=== PATIENT | male | born 1995 | race African-American/Black ===

== ENCOUNTER 2017-01-10 11:34 | Emergency (ER) | payer MEDICAID, OTHER ==
[2017-01-10 11:39] VITALS: BP 154/82
[2017-01-10] MEDS ORDERED: LORazepam TAB(*) 1 MG PO ONE ×2 (12:53→16:53)
[2017-01-10 13:22] LABS: Hematocrit 44 % (42-52); Hemoglobin 14.7 g/dl (14.0-18.0); Mean Corpuscular HGB Conc 33 g/dl (31-36); Mean Corpuscular Hemoglobin 28 pg (27-31); Mean Corpuscular Volume 86 fL (80-94); Mean Platelet Volume 9 um3 (7.4-10.4); Red Blood Count 5.17 10^6/ul (4.0-5.4); Red Cell Distribution Width 13 % (10.5-15); White Blood Count 14.5 10^3/ul (3.5-10.8)
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
[2017-01-10 13:33] LABS: ALT 18 U/L (7-52); AST 34 U/L (13-39); Albumin 4.9 g/dL (3.2-5.2); Alkaline Phosphatase 64 U/L (34-104); Anion Gap 8 mmol/L (2-11); BUN/Creatinine Ratio 7.1 (8-20); Blood Urea Nitrogen 8 mg/dL (6-24); CO2 Carbon Dioxide 29 mmol/L (22-32); Calcium 9.8 mg/dL (8.6-10.3); Chloride 101 mmol/L (101-111); EGFR African American 105.4 (>60); Globulin 2.7 g/dL (2-4); Glucose 128 mg/dL (70-100); Potassium 3.5 mmol/L (3.5-5.0); Sodium 138 mmol/L (133-145); Total Protein 7.6 g/dL (6.4-8.9); Urine Bilirubin Negative (Negative); Urine Glucose Negative (Negative); Urine Nitrite Negative (Negative)
[2017-01-10 13:35] LABS: Acetaminophen < 15 mcg/mL; Alcohol < 10 mg/dL (<10); Salicylate < 2.50 mg/dL (<30)
[2017-01-10 13:37] LABS: Benzodiazepine Urine Screen None Detected (None Detect)
[2017-01-10 13:43] LABS: TSH (Thyroid Stimulating Horm) 0.63 mcIU/mL (0.34-5.60)
--- NOTE | 2017-01-10 20:20 | ED ---
Progress - Progress Note Progress Note: Pt signed out by Heidi Melgoza PA-C. His family brought him in w/ c/o not acting like himself. He admits to using "sam" today. Improved w/ ativan. MH eval feels pt is safe to return home. No SI/HI. - Consult/PCP Time Called: 16:30 Re-Evaluation - Re-Evaluation First Eval Re-Evaluation Time: 17:21 Change: Improved - patient states he feels more relaxed. states he has taken sam before and this is what happens to him, his family members and girlfriend have just never seen him like this before. he feels as though he is ok. still talking fast upon exam Course/Dx - Course Course Of Treatment: Patient was medically cleared, did have cannaboids in his urine and a slight white count without left shift. Given ativan twice to help calm him and try and reverse sam. will be evaluated by mental health. not suicidal or homicidal at this time. - Diagnoses Provider Diagnoses: Drug effect
== END 2017-01-10 19:01 ==
LOC: ED 11:34
DX: T40.7X5A Adverse effect of cannabis (derivatives), initial encounter (principal); Y92.9 Unspecified place or not applicable
CPT/HCPCS: 36415; 80053; 80307; 80320; 80329; 81003; 84443; 85025; 99283; A9270-GY; G0480

== ENCOUNTER 2017-07-13 00:58 | Emergency (ER) | payer OTHER ==
[2017-07-13 01:13] VITALS: BP 141/60
[2017-07-13 02:43] LABS: Urine Bacteria Absent (Absent); Urine Bilirubin Negative (Negative); Urine Glucose Negative (Negative); Urine Nitrite Negative (Negative)
[2017-07-13] MEDS ORDERED: Levofloxacin TAB* 500 MG PO ONE (02:45)
[2017-07-13] MEDS ORDERED: Ibuprofen TAB* 600 MG PO ONE (02:48)
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
== END 2017-07-13 03:01 | disposition home or self-care (01) ==
LOC: ED 00:58
DX: R30.0 Dysuria (principal); N39.0 Urinary tract infection, site not specified
CPT/HCPCS: 81003; 81015; 87086; 99282; A9270-GY